=== PATIENT | male | born 1960 | race Native Hawaiian/Other Pacific Islander ===

== ENCOUNTER 2018-12-01 17:42 | Outpatient (CLI) | payer OTHER | END 2018-12-01 23:39 | disposition home or self-care (01) | LOC: LAB 17:42 | DX: R73.9 Hyperglycemia, unspecified (principal) | CPT/HCPCS: 83036 ==

== ENCOUNTER 2019-08-29 15:04 | Outpatient (CLI) | payer OTHER ==
[2019-08-29 15:57] LABS: POTASSIUM 3.5 mmol/L (3.6-5.2)
[2019-08-29 15:59] LABS: PLATELET COUNT 193 K/uL (142-355)
== END 2019-08-29 22:35 | disposition home or self-care (01) ==
LOC: US 15:04
PROVIDERS: Nurse Practitioner Family
DX: L02.214 Cutaneous abscess of groin (principal); L03.314 Cellulitis of groin; R80.9 Proteinuria, unspecified
CPT/HCPCS: 36415; 80053; 81000; 85027; 87040

== ENCOUNTER 2019-09-28 14:42 | Outpatient (CLI) | payer OTHER | END 2019-09-28 22:55 | disposition home or self-care (01) | LOC: RAD 14:42 | DX: M25.561 Pain in right knee (principal); M25.562 Pain in left knee ==

== ENCOUNTER 2019-12-01 12:39 | Outpatient (CLI) | payer OTHER | END 2019-12-01 19:48 | disposition home or self-care (01) | LOC: RAD 12:39 | PROVIDERS: ATTEND Nurse Practitioner Family | DX: R60.0 Localized edema (principal) ==